=== PATIENT | female | born 1990 | race Caucasian/White ===

== ENCOUNTER 2019-03-02 09:42 | Emergency (ER) | payer SELFPAY ==
--- NOTE | 2019-03-02 11:04 | ULT ---
US Pelvic Transvag W Doppler History: Pelvic pain and cramping Comparison: None. Findings: Real-time grayscale, color, and spectral analysis of the pelvis performed transabdominal an d transvaginal approach. Uterus measures 10.7 x 4 x 5.2 cm. Right ovary measures 1.6 x 1.8 x 2 cm and the left ovary measures 3 x 2 x 3.6 cm. Adequate vascular flow to both ovaries. Likely corpus luteum of the left ovary. No free fluid within the pelvis. No gestational sac or pole. The endometrial thickness is 5 mm. There appear to be small foci of gas within the cervical cavity. Impression: 1. Small foci of what appears to be gas in the cervical and endometrial cavity can be sequelae of iat rogenic air versus cervicitis and endometritis. 2. No intrauterine is appreciated. If patient is truly , recommend correlation with hCG level and follow-up ultrasound. If it turns out to be a positive test, this would be a of unknown location.
[2019-03-02 11:17] LABS: #Basophils 0.1 thou/uL (0.0-0.2); #Eosinphils 0.1 thou/uL (0.0-0.7); #Lymphocytes 1.8 thou/uL (1.20-3.40); #Monocytes 0.4 thou/uL (0.11-0.59); #Neutrophils 6.7 thou/uL (1.40-6.50); %Basophils 0.6 % (0.0-1.0); %Eosinophils 0.9 % (0.0-10.0); %Lymphocytes 19.8 % (21.0-51.0); %Monocytes 4.5 % (0.0-10.0); %Neutrophils 74.2 % (42.0-75.0); Hemoglobin 12.4 g/dL (12.0-16.0); Mean Corpuscular HGB CONC 33.6 g/dL (32.0-36.0); Mean Corpuscular Hemoglobin 29.5 pg (27.0-31.0); Mean Platelet Volume 8.1 fL (7.4-10.4); Platelet Count 342 thou/uL (130-400); RBC Distribution Width 12.7 % (11.5-14.5); Red Blood Cell (RBC) Count 4.19 mill/uL (4.20-5.40)
[2019-03-02 12:27] LABS: Bacteria/HPF 4+ HPF (None Seen); Bilirubin Negative (Negative); Blood, Urine Negative (Negative); Clarity Clear (Clear); Glucose, Urine (Dipstick) Normal (Negative); Leukocyte 75 Leu/uL (Negative); Mucous/LPF Rare LPF (<2+); Nitrite Negative (Negative); Protein, Urine (Dipstick) 20 mg/dL (Neg-Trace); RBC/HPF 0-3 HPF (0-3); Urobilinogen 3 mg/dL (Less than 2)
[2019-03-06 00:59] LABS: Chlamydia by PCR Not Detected (NotDetected); GC by PCR Not Detected (NotDetected)
== END 2019-03-02 12:56 | disposition home or self-care (01) ==
LOC: ERS 09:42
DX: O20.9 Hemorrhage in early pregnancy, unspecified (principal); O23.11 Infections of bladder in pregnancy, first trimester; O99.351 Diseases of the nervous system complicating pregnancy, first trimester; G43.909 Migraine, unspecified, not intractable, without status migrainosus; F17.290 Nicotine dependence, other tobacco product, uncomplicated; Z3A.01 Less than 8 weeks gestation of pregnancy
CPT/HCPCS: 36415; 76856; 81003; 81015; 84702; 85025; 86900; 86901; 87077; 87086; 87186; 87491; 87591

== ENCOUNTER 2019-04-02 13:01 | Emergency (ER) | payer SELFPAY ==
[2019-04-02 13:55] LABS: #Basophils 0.1 thou/uL (0.0-0.2); #Eosinphils 0.1 thou/uL (0.0-0.7); #Lymphocytes 1.7 thou/uL (1.20-3.40); #Monocytes 0.4 thou/uL (0.11-0.59); #Neutrophils 7.2 thou/uL (1.40-6.50); %Basophils 0.5 % (0.0-1.0); %Eosinophils 0.8 % (0.0-10.0); %Lymphocytes 17.9 % (21.0-51.0); %Neutrophils 76.7 % (42.0-75.0); Hemoglobin 12.4 g/dL (12.0-16.0); Mean Corpuscular Hemoglobin 29.1 pg (27.0-31.0); Mean Corpuscular Volume 85.5 fL (78.0-98.0); Mean Platelet Volume 7.9 fL (7.4-10.4); Platelet Count 325 thou/uL (130-400); Red Blood Cell (RBC) Count 4.26 mill/uL (4.20-5.40); White Blood Cell (WBC) Count 9.4 thou/uL (4.8-10.8)
--- NOTE | 2019-04-02 14:17 | ULT ---
EXAM: Transabdominal and transvaginal pelvic ultrasound with Doppler PROVIDED CLINICAL HISTORY: Vaginal bleeding, COMPARISON: 03/02/2019 FINDINGS: A single live intrauterine gestation is now documented, 8 weeks 6 days by crown-rump length. he art rate of 160 bpm was documented. There is no evidence for perigestational hemorrhage. The right and left ovaries appear unremarkable. Color Doppler and spectral analysis of the ovarian waveforms de monstrates normal flow bilaterally. No significant free fluid is evident. IMPRESSION: Single live intrauterine gestation as described.
[2019-04-02] MEDS ORDERED: Morphine 4 MG/ML VIAL ONE (14:26)
[2019-04-02] MEDS ORDERED: Ondansetron PF 4 MG/2 ML Vial ONE (14:26)
[2019-04-02 14:32] LABS: BHCG - Serum POSITIVE (NEGATIVE); Pregs Control Background? CLEAR/WHITE (CLR/WHITE); Pregs Control Bar Appear? YES (CONTROL BAR)
[2019-04-04 22:26] LABS: Chlamydia by PCR Not Detected (NotDetected); GC by PCR Not Detected (NotDetected)
== END 2019-04-02 15:45 | disposition home or self-care (01) ==
LOC: ERS 13:01
DX: O20.9 Hemorrhage in early pregnancy, unspecified (principal); O99.351 Diseases of the nervous system complicating pregnancy, first trimester; G43.909 Migraine, unspecified, not intractable, without status migrainosus; O99.331 Smoking (tobacco) complicating pregnancy, first trimester; F17.290 Nicotine dependence, other tobacco product, uncomplicated; Z3A.09 9 weeks gestation of pregnancy
CPT/HCPCS: 36415; 76856; 84702; 84703; 85025; 86900; 86901; 87480; 87491; 87510; 87591; 87660; 93976; 96361; 96374; 96375; J2270; J2405

== ENCOUNTER 2019-09-22 00:49 | Inpatient (IN) | payer OTHER ==
[2019-09-22 01:21] VITALS: BMI 35.4
[2019-09-22] MEDS ORDERED: hydrALAZINE 20 MG/ML VIAL SLOW IVP PRN ×2 (01:49→05:23)
[2019-09-22] MEDS ORDERED: Morphine 4 MG/ML VIAL SLOW IVP PRN (01:51)
--- NOTE | 2019-09-22 01:55 | PDOC.LDHP ---
Labor and Delivery H&P Chief complaint: other (vaginal bleeding) HPI: 29 y/o at 33w3d, patient of Dr. Alves, presents with vaginal bleeding since midnight after noticing a gush of blood. Patient reports ctx starting at 7pm, which improved with water. Now only having back pain and requesting some tylenol. Denies LOF, or decreased FM. ROS neg for HEENT, cv, pulm, gi, gu, neuro, psych, skin, musculoskeletal or constitutional symptoms other than mentioned above. OB History Details: 3 prior term SVDs complicated by PIH 2 SAB requiring D&C Current complications: none Past Medical History: Migraines Current medications: pre-katharine vitamins Previous surgical history: none Allergies/Adverse Reactions: Allergies Allergy/AdvReac Type Severity Reaction Status Date / Time promethazine [From Phenergan] Allergy Intermediate Verified 09/22/19 01:13 sumatriptan [From Imitrex] Allergy Intermediate Verified 09/22/19 01:13 tramadol Allergy Intermediate Hives Verified 09/22/19 01:13 Social history: none - Physical Exam Vital signs reviewed and normal: yes General: NAD, resting Lungs: nonlabored breathing Abdomen: gravid Extremeties: no edema FHT: category 1 (140s, mod variability, + accels, no decels) [place] contractions every: irritability - Vaginal Exam cm dilated: 1 Effacement: 0% Station: -3 - OB Labs Blood type: O RH: positive - Assessment 29 y/o at 33w3d with vaginal bleeding. SSE with a moderate amount of dark red blood, somewhat watery looking. NST reactive. - Plan -: Will watch for several hours with pad counts. US ordered for BPP, fluid level. IV started for fluids. Tylenol ordered for pain, morphine prn breakthrough pain. Continue to monitor.
[2019-09-22] MEDS: Lactated Ringer's 1,000 ML IV SCH ×3 (02:15→06:12)
[2019-09-22 02:25] LABS: #Basophils 0.1 thou/uL (0.0-0.2); #Eosinphils 0.1 thou/uL (0.0-0.7); #Lymphocytes 2.2 thou/uL (1.20-3.40); #Monocytes 0.7 thou/uL (0.11-0.59); #Neutrophils 14.2 thou/uL (1.40-6.50); %Basophils 0.4 % (0.0-1.0); %Eosinophils 0.9 % (0.0-10.0); %Lymphocytes 12.8 % (21.0-51.0); %Monocytes 3.9 % (0.0-10.0); Hemoglobin 9.3 g/dL (12.0-16.0); Mean Corpuscular HGB CONC 35.3 g/dL (32.0-36.0); Mean Corpuscular Hemoglobin 29.4 pg (27.0-31.0); Mean Corpuscular Volume 83.1 fL (78.0-98.0); Platelet Count 265 thou/uL (130-400); RBC Distribution Width 13.2 % (11.5-14.5); Red Blood Cell (RBC) Count 3.15 mill/uL (4.20-5.40); White Blood Cell (WBC) Count 17.3 thou/uL (4.8-10.8)
[2019-09-22] MEDS ORDERED: Acetaminophen 500 MG TAB PO SCH (02:30)
[2019-09-22] MEDS ORDERED: Acetaminophen 500 MG TAB PO PRN (05:23)
[2019-09-22] MEDS ORDERED: Ondansetron PF 4 MG/2 ML Vial IVP PRN ×2 (05:23→18:47)
[2019-09-22] MEDS ORDERED: Betamet Acet/Betamet Na Ph 30 MG/5 ML VIAL ONE (05:33)
[2019-09-22] MEDS: Betamet Acet/Betamet Na Ph 30 MG/5 ML VIAL IM SCH ×2 (05:38→17:12)
--- NOTE | 2019-09-22 06:10 | PDOC.BPN ---
- Brief Progress Note Patient continues to have moderate vaginal bleeding and is now lan regularly. Will place on obs to give celestone and continue to monitor. GBS collected. Dr. Alves notified.
[2019-09-22] MEDS: Butorphanol Tartrate 1 MG/ML VIAL SLOW IVP PRN ×4 (06:12→17:16)
[2019-09-22 06:35] LABS: Amphetamine Not Detected (NotDetected); Barbiturates Screen Not Detected (NotDetected); Benzodiazepine Screen Not Detected (NotDetected); Cocaine Metabolite Screen Not Detected (NotDetected); Medtox Control Line Valid? VALID (VALID); Medtox Reader # READER 4; Methadone Not Detected (NotDetected); Methamphetamine Not Detected (NotDetected); Opiate Screen Detected (NotDetected); Oxycodone Screen Not Detected (NotDetected); Phencyclidine (PCP) Not Detected (NotDetected); THC/Cannabinoid Screen Not Detected (NotDetected); Tricyclic Screen Not Detected (NotDetected)
--- NOTE | 2019-09-22 07:18 | ULT ---
OBSTETRIC ULTRASOUND FOR BIOPHYSICAL PROFILE INDICATION: VAGINAL BLEEDING AT 33 WEEKS: FINDINGS: There is a single live intrauterine gestation in vertex presentation. Cardiac activity is noted at 1 37 b.p.m. The placenta is posterior in location. The cervix is not well seen. ONESIMO measured 10.8 cm . The fetus received 2 out of 2 for breathing, 2 out of 2 for tone, 2 out of 2 for mo vement, and 2 out of 2 for amniotic fluid volume for a total biophysical profile of 8 out of 8. IMPRESSION: Single live intrauterine gestation with biophysical profile of 8 out of 8. POS: BH
[2019-09-22] MEDS ORDERED: hydrOXYzine Pamoate 25 mg Capsule PO SCH (08:45)
[2019-09-22] MEDS: Ampicillin 2 GM in Sodium Chloride 0.9% 100 ML IVPB SCH ×3 (09:06→21:47)
[2019-09-22] MEDS ORDERED: Bupivacaine 0.25% HCL 30 ML VIAL ONE (09:47)
[2019-09-22] MEDS ORDERED: Azithromycin 500 MG in Sodium Chloride 0.9% 250 ML 250 ML IVPB SCH (10:00)
[2019-09-22] MEDS ORDERED: Ampicillin 2 GM in Sodium Chloride 0.9% 100 ML IVPB SCH (12:00)
[2019-09-22] MEDS ORDERED: Magnesium Sulfate 20 gm/500 ml 20 GM/500 ML BAG ONE (12:50)
[2019-09-22] MEDS ORDERED: Calcium Gluc 4.6 MEQ/10 ML (100 MG/ML) SLOW IVP PRN (12:55)
[2019-09-22] MEDS ORDERED: Measles/Mumps/Rubella 10 MCG/0.5 ML VIAL SC ONE (12:55)
[2019-09-22] MEDS ORDERED: Magnesium Sulfate 20 GM/WATER 500 ML BAG IVPB SCH (13:00)
[2019-09-22] MEDS ORDERED: Magnesium Sulfate 20 gm/500 ml 20 GM/500 ML BAG IVPB SCH (13:00)
[2019-09-22] MEDS ORDERED: Lidocaine 1% (PF) 30 ML VIAL SC PRN (14:51)
[2019-09-22] MEDS ORDERED: Ibuprofen 800 MG TAB PO PRN (14:51)
[2019-09-22] MEDS ORDERED: NS / Oxytocin 40 units/1000ml 1,000 ML IV PRN (14:51)
--- NOTE | 2019-09-22 15:38 | PDOC.APC ---
Antepartum Consult Irma Dacosta is a 29 year old female at [33 3/7] gestational weeks. I was asked by Dr Alves to speak with the patient regarding anticipated course for a baby born at 33-34 weeks. I outlined that the timing and mode of delivery is a decision that will be made by the OB service. Once the patient is taken for delivery, the resuscitation team will be present. The initial focus will be on respiratory stabilization and may include minimal assistance, CPAP or intubation with surfactant administration. I discussed that the patient will need to be admitted to the NICU in an Isolette due to temperature instability associated with prematurity. We will then obtain IV access (peripheral will be first line, umbilical if unable to obtain peripheral ) as babies are at risk for hypoglycemia. We discussed that babies born are at higher risk for feeding intolerance, infection and jaundice. I discussed that breastmilk is the best nutrition for babies and she is strongly encouraged to pump after delivery. Mother does plan to breastfeed and consented to the use of donor milk. I explained that the duration of hospital stay will be determined on the clinical course of the baby. I outlined the milestones that needed to be achieved to ensure safe discharge home. She had the opportunity to ask questions. I encouraged her to contact our service again if additional questions arise. I spent a total of 20 minutes with the patient with greater than 50% of the time counseling & coordinating care Labs: Ante Labs Blood Type O POSITIVE 09/22/19 02:05
[2019-09-22 15:49] LABS: Syphilis Antibody Nonreactive (Nonreactive); Syphilis Antibody Index 0.03 S/CO (<1.00 Non-Reactive)
[2019-09-22 15:50] LABS: HBSAg Index 0.19 S/CO (0-0.99); Hep B Surf Ag Non-Reactive S/CO (NonReactive)
[2019-09-22 17:08] LABS: Bilirubin Negative (Negative); Blood, Urine 2+ (Negative); Clarity Clear (Clear); Glucose, Urine (Dipstick) Normal (Negative); Leukocyte Negative Leu/uL (Negative); Nitrite Negative (Negative); Protein, Urine (Dipstick) Negative (Neg-Trace); Squamous Epithelial 0-3 HPF (0-3); Urobilinogen Normal mg/dL (Less than 2); WBC/HPF 0-3 HPF (0-3)
[2019-09-22 17:11] LABS: Bacteria/HPF 1+ HPF (None Seen)
[2019-09-22] MEDS ORDERED: Fentanyl 4 mcg/Bup 0.1% Cadd 100 ML ONE (17:28)
[2019-09-22] MEDS ORDERED: Naloxone HCl 0.4 mg/ml Vial IVP PRN ×2 (18:47)
[2019-09-22] MEDS ORDERED: Acetaminophen 325 MG TAB PO PRN (18:47)
[2019-09-22] MEDS ORDERED: EPHEDRINE 25 MG/5 ML SYRINGE SLOW IVP PRN (18:47)
[2019-09-22] MEDS ORDERED: Lactated Ringer's 500 ML IV PRN (18:47)
[2019-09-22] MEDS ORDERED: diphenhydrAMINE 50 MG/ML VIAL IVP PRN (18:47)
[2019-09-22] MEDS ORDERED: Fentanyl 4 mcg/Bupivacaine 0.1% Cassette 100 ML EPIDURAL SCH (19:00)
[2019-09-22] MEDS ORDERED: Communication Order-Pharmacy FS SCH (19:00)
[2019-09-22] MEDS ORDERED: Lidocaine 2% Jelly 5 ML TUBE TOP SCH (19:45)
[2019-09-23] MEDS ORDERED: Fentanyl 4 mcg/Bup 0.1% Cadd 100 ML ONE (00:27)
[2019-09-23] MEDS: Lactated Ringer's 1,000 ML IV SCH ×2 (02:00→13:39)
[2019-09-23] MEDS: Ampicillin 2 GM in Sodium Chloride 0.9% 100 ML IVPB SCH (03:58)
[2019-09-23] MEDS ORDERED: Methylergonovine 0.2 MG/ML VIAL ONE (04:30)
[2019-09-23] MEDS ORDERED: Misoprostol 200 MCG TAB ONE ×2 (04:32→05:21)
[2019-09-23] MEDS ORDERED: Tranexamic Acid 1,000 MG/10 ML VIAL ONE (04:36)
--- NOTE | 2019-09-23 04:57 | PDOC.EVN ---
Event Note - Event Note Event Note: Rapid , pt. pushing uncontrollably. Placenta delivered intact Julien with appearance of marginal abruptio. Perineum intact. Atony noted, tx. with Methergine .2 IM and Cytotec 800 NH. EBL= 800-1000 cc. Report given to Dr. Alves upon his arrival. Baby to NICU.
[2019-09-23] MEDS ORDERED: Misoprostol 200 MCG TAB VAG PRN (05:00)
[2019-09-23] MEDS ORDERED: Benzocaine-Menthol 82.5 ML CAN TOP PRN (05:00)
[2019-09-23] MEDS ORDERED: Preparation H Ointment 28 GM TUBE PR PRN (05:00)
[2019-09-23] MEDS ORDERED: Zolpidem Tartrate 5 MG TAB PO PRN (05:00)
[2019-09-23] MEDS ORDERED: hydrALAZINE 20 MG/ML VIAL SLOW IVP PRN (05:00)
[2019-09-23] MEDS ORDERED: Ondansetron PF 4 MG/2 ML Vial IVP PRN (05:00)
[2019-09-23] MEDS ORDERED: Milk Of Magnesia 30 ML UDCUP PO PRN (05:00)
[2019-09-23] MEDS ORDERED: NS / Oxytocin 40 units/1000ml 1,000 ML IV SCH (05:00)
[2019-09-23] MEDS ORDERED: Lanolin Ointment 7 GM TUBE TOP PRN (05:00)
[2019-09-23] MEDS ORDERED: diphenhydrAMINE 25 MG CAP PO PRN (05:00)
[2019-09-23] MEDS ORDERED: Bisacodyl 10 MG SUPP PR PRN (05:00)
[2019-09-23] MEDS: Misoprostol 100 MCG TAB PO SCH ×3 (05:43→08:00)
[2019-09-23] MEDS: Ibuprofen 800 MG TAB PO SCH ×3 (07:00→21:36)
[2019-09-23 07:19] LABS: Hemoglobin 7.7 g/dL (12.0-16.0)
[2019-09-23] MEDS: Docusate Calcium (SURFAK) 240 MG CAP PO SCH ×2 (07:59→21:37)
[2019-09-23] MEDS: Prenatal Vitamin 1 TAB PO SCH (07:59)
[2019-09-23] MEDS: Ferrous Sulfate 325 MG TAB PO SCH ×2 (08:00→18:19)
[2019-09-23] MEDS: Acetaminophen/Codeine 30-300mg Tablet PO PRN ×3 (08:28→20:43)
[2019-09-23] MEDS: Adacel (T-DAP) 0.5 ML SYRINGE IM ONE (11:27)
[2019-09-24] MEDS: Acetaminophen/Codeine 30-300mg Tablet PO PRN ×4 (04:00→22:09)
[2019-09-24] MEDS: Ibuprofen 800 MG TAB PO SCH ×3 (05:56→22:10)
[2019-09-24 07:59] LABS: Hemoglobin 6.9 g/dL (12.0-16.0)
[2019-09-24] MEDS: Docusate Calcium (SURFAK) 240 MG CAP PO SCH ×2 (09:12→22:10)
[2019-09-24] MEDS: Prenatal Vitamin 1 TAB PO SCH (09:12)
[2019-09-24] MEDS: Ferrous Sulfate 325 MG TAB PO SCH ×2 (09:13→16:19)
[2019-09-25] MEDS: Ibuprofen 800 MG TAB PO SCH ×3 (05:12→22:57)
[2019-09-25] MEDS: Acetaminophen/Codeine 30-300mg Tablet PO PRN ×3 (05:12→22:57)
[2019-09-25] MEDS: Docusate Calcium (SURFAK) 240 MG CAP PO SCH ×2 (09:56→22:57)
[2019-09-25] MEDS: Prenatal Vitamin 1 TAB PO SCH (09:56)
[2019-09-25] MEDS: Ferrous Sulfate 325 MG TAB PO SCH ×2 (09:57→17:57)
--- NOTE | 2019-09-25 11:58 | PDOC.PP ---
Post Progress Note Post Day #: 2 PO intake tolerated: yes Flatus: yes Ambulation: yes Weight Weight 194 lb - Physical Examination General: NAD Cardiovascular: no m/r/g, RRR Respiratory: clear to auscultation bilaterally, non-labored breathing Abdominal: + bowel sounds, lochia, no distention, appropriately TTP Extremities: negative homans (B) Neurological: no gross focal deficits Psychiatric: A&Ox3, normal affect Result Diagrams: 09/24/19 07:48 Additional Labs: Post Labs Blood Type O POSITIVE 09/22/19 02:05 Hep Bs Antigen Non-Reactive S/CO (NonReactive) 09/22/19 02:05 - Assessment/Plan Stable anemia, on iron per Dr. Alves, with normal vital signs, last Heart Rate of 70.
[2019-09-25] MEDS ORDERED: Measles/Mumps/Rubella 10 MCG/0.5 ML VIAL SC ONE (15:30)
[2019-09-25] MEDS: Adacel (T-DAP) 0.5 ML SYRINGE IM ONE (18:06)
[2019-09-25 23:07] VITALS: BP 145/80; TEMP 98.2
== END 2019-09-25 23:08 | disposition home or self-care (01) | DRG 805 ==
LOC: L&D/OP 00:49 → L&D 05:26 → OBSVTOIN 05:26 → 3SW 09-23 12:22
PROVIDERS: ADMIT Obstetrics & Gynecology; ATTEND Obstetrics & Gynecology
PROC: 10E0XZZ Delivery of Products of Conception, External Approach (ICD-10-PCS; principal; 2019-09-23)
PROC: 10907ZC Drainage of Amniotic Fluid, Therapeutic from Products of Conception, Via Natural or Artificial Opening (ICD-10-PCS; 2019-09-23)
DX: O60.10X0 Preterm labor with preterm delivery, unspecified trimester, not applicable or unspecified (principal); O45.93 Premature separation of placenta, unspecified, third trimester; Z37.0 Single live birth; D62 Acute posthemorrhagic anemia; O72.1 Other immediate postpartum hemorrhage; O99.02 Anemia complicating childbirth; G43.909 Migraine, unspecified, not intractable, without status migrainosus; Z88.8 Allergy status to other drugs, medicaments and biological substances; Z3A.33 33 weeks gestation of pregnancy; O99.62 Diseases of the digestive system complicating childbirth; O67.9 Intrapartum hemorrhage, unspecified; K21.9 Gastro-esophageal reflux disease without esophagitis
CPT/HCPCS: 36415; 51702; 76819; 80306; 81001; 85014; 85018; 85025; 86780; 86850; 86900; 86901; 87081; 87340; 88307; 90707; 90715; 99285; J0290; J0456; J0595; J0702; J2210; J2270; J2405; J3475; J3490; J7050; Q0177; S0020

== ENCOUNTER 2021-08-01 18:38 | Emergency (ER) | payer OTHER | END 2021-08-01 19:15 | disposition home or self-care (01) | LOC: ERS 18:38 | DX: K02.9 Dental caries, unspecified (principal); K03.81 Cracked tooth; G43.909 Migraine, unspecified, not intractable, without status migrainosus; F17.290 Nicotine dependence, other tobacco product, uncomplicated | CPT/HCPCS: 99283 ==

== ENCOUNTER 2022-10-29 21:21 | Emergency (ER) | payer OTHER ==
[2022-10-30] MEDS ORDERED: Ketorolac Tromethamine 30 MG/ML VIAL ONE (01:36)
[2022-10-30] MEDS ORDERED: fentaNYL 50 mcg/mL 1 mL Vial ONE (01:36)
== END 2022-10-30 01:55 | disposition home or self-care (01) ==
LOC: ERS 21:21
DX: M23.92 Unspecified internal derangement of left knee (principal); F17.290 Nicotine dependence, other tobacco product, uncomplicated
CPT/HCPCS: 96372; J1885; J3010

== ENCOUNTER 2023-10-03 16:18 | Emergency (ER) | payer OTHER, SELFPAY | END 2023-10-03 18:02 | disposition home or self-care (01) | LOC: ERS 16:18 | DX: K04.7 Periapical abscess without sinus (principal); K03.81 Cracked tooth; F17.290 Nicotine dependence, other tobacco product, uncomplicated | CPT/HCPCS: 99282 ==